=== PATIENT | male | born 1980 | race Caucasian/White ===

== ENCOUNTER 2018-09-26 15:38 | Emergency (ER) | payer BC ==
[2018-09-26] MEDS ORDERED: ACETAMINOPHEN 500 MG TAB PO ONE (15:55)
[2018-09-26] MEDS ORDERED: ALBUTEROL/IPRATROPIUM 3 ML NEB NEB ONE (16:00)
--- NOTE | 2018-09-26 16:00 | ER Report ---
History and Physical Time Seen By MD: 15:50 Hx. of Stated Complaint: PATIENT REPORTS FLU LIKE SYMPTOMS WITH COUGH AND BODY ACHES FOR 2 DAYS. WAS EXPOSED FROM FAMILY HPI/ROS CHIEF COMPLAINT: Cough fever or flulike symptoms HISTORY OF PRESENT ILLNESS: 38-year-old male several day history of cough fever chills or flulike symptoms has 2 sick children both with a fluid home history [id number] cold medicines with little to no benefit cough and fevers gotten worse MAXIMUM TEMPERATURE reportedly at home is 103 eyes 101.2 on arrival here patient is feeling tired and lethargic has general malaise joint pain or discomfort no additional complaints noted. Cough is productive of thick sputum REVIEW OF SYSTEMS: Respiratory: has cough, no dyspnea. Cardiovascular: No chest pain, no palpitations. Gastrointestinal: No vomiting, no abdominal pain. Musculoskeletal: No back pain. Remainder of the 14 system rev: Yes Allergies: Coded Allergies: No Known Drug Allergies (Unverified , 09/26/18) Reviewed Nurses Notes: Yes Old Medical Records Reviewed: Yes Hx Substance Use Disorder: No Hx Alcohol Use: No Constitutional Vital Sign - Last 24 Hours 09/26/18 09/26/18 09/26/18 09/26/18 15:51 15:55 15:55 16:01 Temp 101.1 Pulse 125 101 103 Resp 20 20 18 B/P (MAP) 168/109 Pulse Ox 92 95 O2 Delivery Room Air Nasal Cannula O2 Flow Rate 3.0 09/26/18 16:01 Pulse Ox 94 O2 Delivery Nasal Cannula O2 Flow Rate 2.0 Physical Exam General Appearance: The patient is alert, has no immediate need for airway protection and no current signs of toxicity. Appears ill Eyes: Pupils equal and round no injection. Respiratory: Some mild coarse breath sounds and expiratory wheeze noted primarily left greater than right Cardiac: regular rate and rhythm [ ] Gastrointestinal: Abdomen is soft and non tender, no masses, bowel sounds normal. Musculoskeletal: Neck: Neck is supple and non tender. Extremities have full range of motion and are non tender. Skin: No rashes or lesions. [ ] DIFFERENTIAL DIAGNOSIS: After history and physical exam differential diagnosis was considered for influenza bronchitis pneumonia Medical Decision Making Data Points Laboratory Hematology Test 09/26/18 15:44 Influenza Virus Type A (PCR) Positive (NEGATIVE) Influenza Virus Type B (PCR) Negative (NEGATIVE) Chemistry Test 09/26/18 15:44 Influenza Virus Type A (PCR) Positive (NEGATIVE) Influenza Virus Type B (PCR) Negative (NEGATIVE) ED Course/Re-evaluation ED Course ED course 28-year-old male with flulike symptoms he is tested positive for and phlegms Y chest x-ray shows no acute coronary respiratory processes patient diagnosed with flu [id number] treatment remedies and evaluated no TheraFlu needed this time is spent 3 days into his symptomatology Decision to Disposition Date: Sep 26, 2018 Decision to Disposition Time: 16:52 Depart Departure Latest Vital Signs Vital Signs Date Time Temp Pulse Resp B/P (MAP) Pulse Ox O2 Delivery O2 Flow Rate FiO2 09/26/18 16:01 94 Nasal Cannula 2.0 09/26/18 16:01 103 18 09/26/18 15:51 101.1 168/109 Impression: Primary Impression: Influenza Condition: Improved Disposition: HOME OR SELF-CARE Referrals: HENNY JOE 5 Days Patient Instructions: Influenza (DC) CRISTINA PUGA MD Sep 26, 2018 16:00
[2018-09-26 16:30] VITALS: BP 138/95
--- NOTE | 2018-09-26 16:49 | RADIOLOGY IMAGING REPORT ---
FACILITY: [facility] [place] PATIENT NAME: Eloy Huddleston : 1980 MR: [id number] V: [id number] EXAM DATE: ORDERING PHYSICIAN: CRISTINA PUGA TECHNOLOGIST: [place] [facility] [place] Eloy Huddleston : 1980 Visit/Account:[id number] Date of Sevice: 09/26/2018 2 VIEWS CHEST INDICATION: Shortness breath and cough. Positive fluid test. COMPARISON: None available FINDINGS: Cardiomediastinal silhouette and pulmonary vessels within normal limits. Lung volumes decreased bilaterally causing some accentuation to the interstitium. No focal areas of c onsolidation. There is no pneumothorax or pleural effusion. No nodule. Small scar seen in left lower lobe. Upper abdomen is unremarkable. No acute bony abnormality. Multiple old right rib fractures. IMPRESSION: 1. Low lung volumes without indication of acute cardiopulmonary disease. Report Dictated By: Mike Anand at 09/26/2018 4:42 PM Report E-Signed By: Mike Anand at 09/26/2018 4:44 PM WSN:[id number]
== END 2018-09-26 17:03 | disposition home or self-care (01) ==
LOC: ER 16:03
DX: J09.X2 Influenza due to identified novel influenza A virus with other respiratory manifestations (principal)
CPT/HCPCS: 71046; 87502; 94640; 99283; J7620